=== PATIENT | female | born 1965 | race Native Hawaiian/Other Pacific Islander ===

== ENCOUNTER 2022-01-19 11:10 | Outpatient (CLI) | payer OTHER ==
[~2022-01-19 11:10] MED LIST: ADIPEX PO; ALPR0.2566 PO; BELVIQ10 MG OR; BENICAR HCT1 TAB PO; DICL75TA4 PO; VICTOZA18 MG/3 ML SC
== END 2022-01-19 20:31 | disposition home or self-care (01) ==
LOC: RAD 11:10
PROVIDERS: ATTEND Registered Nurse
DX: M54.59 Other low back pain (principal)